=== PATIENT | male | born 2000 | race Caucasian/White ===

== ENCOUNTER 2023-10-23 20:17 | Inpatient (IN) | payer MEDICAID ==
[~2023-10-23] VITALS: Ht 175.3 cm; Wt 69.9 kg
[2023-10-23] MEDS: LIDOCAINE HCL 1% 20ML VIAL (Pyxis) INJ INFIL ONE (21:15)
[2023-10-23] MEDS: CEFTRIAXONE SODIUM 1G VIAL IM ONE (22:15)
[2023-10-23] MEDS ORDERED: CEPH500C2 MT (22:56)
[2023-10-24] MEDS: HYDROCODONE/ACETAMINOPHEN 5/325MG TABLET PO ONE (00:45)
[2023-10-24] MEDS: MORPHINE SULFATE 4 MG/ML INJ (FOR IV/IM USE) IV ONE (02:00)
[2023-10-24 03:37] LABS: BASOPHILS % 0.7 % (0.0-2.0); EOSINOPHILS % 1.2 % (0.0-5.0); HEMATOCRIT. 44.3 % (42.0-52.0); HEMOGLOBIN. 15.1 g/dL (14.0-18.0); LYMPHOCYTES % 22.7 % (20.0-50.0); MEAN CORPUSCULAR HEMOGLOBIN 30.3 pg (28.0-32.0); MEAN CORPUSCULAR VOLUME 89.1 fL (80.0-94.0); MEAN PLATELET VOLUME 8.4 fl (7.4-10.4); NEUTROPHILS % 62.4 % (40.0-76.0); PLATELET 269 x1000/uL (130-400); RED BLOOD CELL COUNT 4.97 mill/uL (4.7-6.1); RED CELL DISTRIBUTION WIDTH 13.7 % (11.6-14.6); WHITE BLOOD COUNT 11.4 x1000/uL (4.5-11.0)
[2023-10-24 03:50] LABS: CHLORIDE 105 mEq/L (98-107); POTASSIUM 3.9 mEq/L (3.5-5.1); SODIUM 139 mEq/L (136-145)
[2023-10-24 03:51] LABS: CARBON DIOXIDE 27 mEq/L (21-32)
[2023-10-24 03:52] LABS: CALCIUM 9.6 mg/dL (8.7-10.4)
[2023-10-24 03:56] LABS: CREATININE 0.9 mg/dL (0.6-1.3); GLUCOSE 95 mg/dL (70-105)
[2023-10-24 03:57] LABS: UREA NITROGEN BLOOD 17 mg/dL (9-23)
[2023-10-24] MEDS: HYDROCODONE/ACETAMINOPHEN 5/325MG TABLET PO NR (04:45)
[2023-10-24] MEDS: MORPHINE SULFATE 4 MG/ML INJ (FOR IV/IM USE) IV NR (04:46)
[2023-10-24] MEDS: CEFTRIAXONE 1GM/50ML 50 ML IV SCH (04:46)
[2023-10-24] MEDS: VANCOMYCIN 1G PREMIX 200 ML IV NR (04:58)
[2023-10-24 05:51] VITALS: BP 119/72; PULSE 66; RESP 17; TEMP 97.7
[2023-10-24 08:00] VITALS: BP 114/71; PULSE 89; RESP 20; TEMP 98
[2023-10-24 08:46] LABS: HEPATITIS B SURFACE ANTIGEN NEGATIVE (Negative)
[2023-10-24 09:08] LABS: HEPATITIS C AB NON REACTIVE (Neg) (Negative)
[2023-10-24] MEDS: PIPERACILLIN/TAZO 3.375G/50ML 50 ML IV SCH (10:25)
[2023-10-24] MEDS: VANCOMYCIN 1GM/200ML PMX (BAXTER) IV SCH (12:46)
[2023-10-24 12:52] VITALS: BP 110/69; PULSE 54; RESP 20; TEMP 98.3
[2023-10-24] MEDS: KETOROLAC 30MG/ML VIAL IV PRN (14:06)
[2023-10-24 16:00] VITALS: BP 120/69; PULSE 68; RESP 20; TEMP 97
[2023-10-24] MEDS ORDERED: NALOXONE HCL 0.4MG/ML VIAL IV PRN (17:15)
[2023-10-24] MEDS: HYDROCODONE/ACETAMINOPHEN 10/325MG TABLET PO PRN (21:27)
[2023-10-25] MEDS ORDERED: LIDOCAINE HCL/EPINEPHRINE 1%-EPI 1:100,000 20 ML VIAL INFIL NR (10:00)
[2023-10-25] MEDS: ARIPIPRAZOLE 5MG TABLET PO NR (10:45)
[2023-10-25] MEDS: LORAZEPAM 2MG/ML INJ IV NR (11:45)
[2023-10-25 16:00] VITALS: BP 109/70; PULSE 70; RESP 18; TEMP 98
[2023-10-25] MEDS ORDERED: HALOPERIDOL LACTATE 5MG/ML VIAL IM PRN (17:45)
[2023-10-25] MEDS ORDERED: LORAZEPAM 2MG/ML INJ IV PRN (18:00)
[2023-10-25 18:37] LABS: *AMPHETAMINES SCREEN URINE NEGATIVE (NEGATIVE); *BARBITURATES SCREEN URINE NEGATIVE (NEGATIVE); *BENZODIAZEPINES SCREEN URINE NEGATIVE (NEGATIVE); *COCAINE SCREEN URINE NEGATIVE (NEGATIVE)
[2023-10-25 18:38] LABS: CANNABINOID URINE SCREEN PRESUMPTIVE POSITIVE (NEGATIVE); ECSTASY MDMA SCREEN URINE NEGATIVE (NEGATIVE); METHADONE URINE SCREEN NEGATIVE (NEGATIVE); OPIATES URINE SCREEN PRESUMPTIVE POSITIVE (NEGATIVE); PHENCYCLIDINE URINE SCREEN NEGATIVE (NEGATIVE)
[2023-10-25 20:00] VITALS: BP 105/55; PULSE 82; RESP 18; TEMP 98
[2023-10-25] MEDS: VANCOMYCIN 1GM/200ML PMX (BAXTER) IV SCH (23:30)
[2023-10-26] VITALS: BP 123/60; PULSE 75; RESP 18; TEMP 98.2
[2023-10-26 08:00] VITALS: BP 111/66; PULSE 65; RESP 18; TEMP 97.5
[2023-10-26 10:10] LABS: BASOPHILS % 0.9 % (0.0-2.0); EOSINOPHILS % 2.7 % (0.0-5.0); HEMATOCRIT. 40.2 % (42.0-52.0); HEMOGLOBIN. 13.6 g/dL (14.0-18.0); LYMPHOCYTES % 22.6 % (20.0-50.0); MEAN CORPUSCULAR HEMOGLOBIN 30.4 pg (28.0-32.0); MEAN CORPUSCULAR HGB CONC 33.9 g/dL (31.0-37.0); MEAN CORPUSCULAR VOLUME 89.8 fL (80.0-94.0); MONOCYTES % 6.8 % (2.0-8.0); PLATELET 213 x1000/uL (130-400); RED BLOOD CELL COUNT 4.47 mill/uL (4.7-6.1); RED CELL DISTRIBUTION WIDTH 13.7 % (11.6-14.6); WHITE BLOOD COUNT 7.5 x1000/uL (4.5-11.0)
[2023-10-26 10:21] LABS: CHLORIDE 107 mEq/L (98-107); SODIUM 140 mEq/L (136-145)
[2023-10-26 10:22] LABS: CARBON DIOXIDE 27 mEq/L (21-32)
[2023-10-26 10:23] LABS: CALCIUM 8.8 mg/dL (8.7-10.4)
[2023-10-26 10:27] LABS: CREATININE 0.8 mg/dL (0.6-1.3); GLUCOSE 133 mg/dL (70-105)
[2023-10-26 10:28] LABS: UREA NITROGEN BLOOD 10 mg/dL (9-23); VANCOMYCIN TROUGH 47.1 ug/mL (5.0-10.0)
[2023-10-26 12:00] VITALS: BP 118/75; PULSE 62; RESP 18; TEMP 96.6
[2023-10-26 16:00] VITALS: BP 117/59; PULSE 65; RESP 18; TEMP 97.7
[2023-10-26 20:00] VITALS: BP 132/73; PULSE 77; RESP 19; TEMP 97.7
[2023-10-26] MEDS: DOCUSATE SODIUM 250MG CAPSULE PO SCH (20:45)
[2023-10-27] MEDS: VANCOMYCIN 1GM/200ML PMX (BAXTER) IV SCH (07:11)
[2023-10-27] MEDS: SULFAMETHOXAZOLE/TRIMETHOPRIM 800/160MG TABLET PO SCH (11:00)
[2023-10-28 04:00] VITALS: BP 120/80; PULSE 86; RESP 18; TEMP 97.6
[2023-10-28 08:00] VITALS: BP 106/49; PULSE 54; RESP 18; TEMP 97
[2023-10-28 12:00] VITALS: BP 110/70; PULSE 62; RESP 18; TEMP 98
[2023-10-28 16:00] VITALS: BP 106/68; PULSE 57; RESP 18; TEMP 98
[2023-10-29 04:00] VITALS: BP 124/73; PULSE 56; RESP 18; TEMP 96.4
[2023-10-29 08:00] VITALS: BP 118/57; PULSE 65; RESP 18; TEMP 97.5
[2023-10-29 10:44] VITALS: BP 118/57; PULSE 65; TEMP 97.5; O2SAT 98
[2023-10-29] MEDS ORDERED: NALOXONE HCL 0.4MG/ML VIAL IV PRN (10:45)
[2023-10-29 12:00] VITALS: BP 109/57; PULSE 67; RESP 18; TEMP 98.5
[2023-10-29] MEDS: HYDROCODONE/ACETAMINOPHEN 10/325MG TABLET PO PRN (14:04)
[2023-10-29 16:00] VITALS: BP 117/65; PULSE 72; RESP 18; TEMP 98.1
[2023-10-29 20:00] VITALS: BP 127/50; PULSE 63; RESP 18; TEMP 98.1
[2023-10-29] MEDS ORDERED: LORAZEPAM 1MG TABLET PO PRN (20:00)
[2023-10-30] VITALS: BP 128/61; PULSE 84; RESP 18; TEMP 98
[2023-10-30 08:00] VITALS: BP 122/73; PULSE 70; RESP 18; TEMP 98
[2023-10-30 12:00] VITALS: BP 125/80; PULSE 70; RESP 18; TEMP 98.1
[2023-10-30 20:00] VITALS: BP 115/76; PULSE 77; RESP 18; TEMP 96.5
[2023-10-31 11:45] VITALS: BP 105/64; PULSE 68; RESP 20; TEMP 97.4
[2023-10-31 12:00] VITALS: BP 105/64; PULSE 68; RESP 20; TEMP 97.4
[2023-10-31 15:11] VITALS: BP 105/64; PULSE 68; RESP 20
== END 2023-10-31 16:30 | disposition short-term general hospital (02) | DRG 351 ==
LOC: ER 20:17 → 6WST 10-24 02:21
PROVIDERS: ADMIT Internal Medicine; ATTEND Internal Medicine
DX: S61.441A Puncture wound with foreign body of right hand, initial encounter (principal); F17.210 Nicotine dependence, cigarettes, uncomplicated; F39 Unspecified mood [affective] disorder; W34.00XA Accidental discharge from unspecified firearms or gun, initial encounter; Y93.89 Activity, other specified; Y92.89 Other specified places as the place of occurrence of the external cause; Y99.8 Other external cause status
CPT/HCPCS: 36415; 71045; 73130; 80048; 80202; 80305; 85025; 86705; 87340; 99291; J0696; J1630; J1885; J2060; J2270; J2543; J3370; J3490